=== PATIENT | female | born 1965 | race Caucasian/White ===

== ENCOUNTER → 2018-05-20 10:43 | Outpatient (CLI) | payer OTHER, SELFPAY ==
[2018-05-20 11:18] LABS: Add Manual Diff / Slide Review NO; Basophils Absolute Auto 0 /uL (0-100); Basophils Percent Auto 0.7 % (0-2); Eosinophils Absolute Auto 300 /uL (0-450); Hemoglobin 13.9 g/dL (12.0-16.0); Lymphocytes Absolute Auto 1600 /uL (1100-4500); Lymphocytes Percent Auto 24.8 % (25-40); Mean Corpuscular Hemoglobin 30.9 PG (26-34); Mean Corpuscular Volume 90.8 fL (80-100); Monocytes Absolute Auto 500 /uL (0-900); Monocytes Percent Auto 8.4 % (3-14); Neutrophils Absolute Auto 4000 /uL (1500-7000); Neutrophils Percent Auto 61.1 % (50-75); Platelet Count 212 X10^3/uL (150-400); Red Blood Cell Count 4.51 X10^6/uL (4.0-5.2); Red Cell Distribution Width 12.8 % (11.6-14.8); White Blood Cell Count 6.5 X10^3/uL (4.5-11.0)
== END ==
PROVIDERS: Family Provider Nurse Practitioner Family; PCP Nurse Practitioner Family; Visit Provider Specialist
DX: Z01.818 Encounter for other preprocedural examination (principal)
CPT/HCPCS: 36415; 85025

== ENCOUNTER 2018-05-28 06:38 | Day surgery (SDC) | payer OTHER, SELFPAY ==
[2018-05-27 07:29] VITALS: BMI 36.0
[2018-05-28] VITALS (14 sets, daily range): BP systolic 105–149; BP diastolic 56–76; PULSE 56–81; RESP 13–38; TEMP 36.3–36.8; O2SAT 97–100; BMI 36.0
--- NOTE | 2018-05-28 07:28 | PM.PREOP ---
Pre-operative Note Interval Note History & Physical reviewed/Exam performed by Physician: Yes Changes to H&P: No H&P completed within 30 days and has changed as indicated here:: see 05/20/18 out patient note
[2018-05-28] MEDS: CEFAZOLIN 2 GM/100 ML FROZ.PIGGY IV (07:55)
[2018-05-28] MEDS: LACTATED RINGERS 1,000 ML 100 ML IV ×2 (07:59→11:14)
--- NOTE | 2018-05-28 08:21 | SUR.OPER ---
Lithotomy on padded OR bed, head on pillow, arms secured on padded arm boards at <90 degrees abduction. Legs secured in padded yellow fins stirrups.
[2018-05-28] MEDS: ACETAMINOPHEN IV 1,000 MG/100 ML VIAL 400 MG IV (08:22)
[2018-05-28] MEDS: BUPIVACAINE 0.5% W/ EPI (PF) VIAL 30 ML INJ (08:33)
[2018-05-28] MEDS: SODIUM CHLORIDE 0.9% FLUSH 30 ML IV (08:34)
[2018-05-28] MEDS: HYDROMORPHONE 2 MG INJ 0.5 MG IV (09:42)
--- NOTE | 2018-05-28 09:43 | PM.OP.1 ---
Operative Date/Time/Diagnoses Date of procedure: 05/28/18 Time of procedure: 09:43 Pre-op diagnosis: Stress urinary incontinence with symptomatic cystocele and rectocele Post-op diagnosis: same Procedure & Clinicians Procedure: Anterior and posterior repair with sacrospinous ligament fixation and TVT exact suburethral sling Same procedure as scheduled: Yes Indications: Stress urinary incontinence and symptomatic cystocele and rectocele without uterine prolapse Surgeon: Lauren Kemp Click Yes if Unassisted: Yes Anesthesia Type: Spinal Operative Notes Findings: Hypermobile urethra with cystocele and rectocele, gaping introitus, no uterine prolapse Closure Type: primary Specimen(s): none sent Prosthetic devices, grafts, tissues, transplants, or devices: TVT exact suburethral sling Applied: catheter and other (Vaginal packing) Estimated Blood Loss (mL): 50 Procedure in detail: Patient was brought to the operating room where she was placed in yellowfin stirrups and prepped and draped in the usual sterile fashion. A check system was reviewed prior to the beginning of the case. Pulsatile stockings were in place and functional throughout the case. Warming was in place. 2 g of Ancef were in prior to beginning of the case. A Osorio catheter was placed. A dilute solution of 0.5% Marcaine with epinephrine was injected over this cystocele. An incision was made over the cystocele and the incision dissected laterally. A pursestring suture was used to decrease the caliber of the cystocele with 2-0 Vicryl suture. Plicating sutures were made over the cystocele. The incision was closed with 2-0 Vicryl suture.unless otherwise indicated. The area of the mid urethra was injected with half percent Marcaine with epinephrine. An incision was made over the mid urethra with a scalpel. The incision was extended laterally. The suprapubic exit sites were marked with a marking pen. The needles attached to the sling were placed from the bottom up and left in place. The catheter was removed and 300 mL of saline were placed in the bladder and cystoscopy was performed. A 70?? scope followed by a 12?? scope were used to look at the bladder and the urethra was no damage apparent with placement of the needles. Both ureters were seen to be functional. The graft was brought up loosely under the mid urethra. With sharp pressure against the bladder there was some leakage of urine. The plastic sheath was removed. The graft was cut under the skin of the suprapubic sites. The vaginal incision was closed with 2-0 Vicryl suture. Next a wedge shaped tissue was taken out of the posterior vaginal opening. The area over the rectocele was injected with a dilute solution of 0.5% Marcaine with epinephrine. An incision was made over the rectocele and enterocele with the scalpel. The dissection was undertaken laterally. Prolene suture with the Capio passer was placed through the uterosacral ligament on the right side and sutured to the underside of the cervix. 0 Vicryl suture was used to plicate over the rectocele. A finger was placed in the rectum to be sure there were no sutures placed through the rectal mucosa. The uterosacral sutures were tightened down and the vaginal incision was closed with 2-0 Vicryl suture. The perineal body was built up with interrupted 0 Vicryl sutures. The skin was closed with the 2-0 Vicryl suture. Vaginal packing was placed in the vagina and the Osorio left in place. Counts of instruments and sponges were correct. The patient went to recovery room in good condition. Complications: none Condition: stable Disposition: Acute Care Plan for aftercare: Vaginal packing and Osorio in until a.m. than bladder trial prior to discharge
--- NOTE | 2018-05-28 10:04 | SUR.PHASEI ---
Report called to KAMRYN Dominguez
--- NOTE | 2018-05-28 10:23 | SUR.PHASEI ---
Pt transferred to the floor. Report to KAMRYN Dominguez. IV saline locked. VS stable. Abd drsgs cdi x2, small amt of light pink drainage to roselia-pad. Osorio draining clear, light urine. Belongings bag and glasses with patient.
--- NOTE | 2018-05-28 11:52 | PC.ADMIT ---
[address] Admission Note: Patient to rm 229 from pacu at 1015. rates pain 3/10 which is tolerable, she states. Ice pack to pubic surgical incision sites. Sites CDI. Peripad w/ scant pink drainage. VSS. RA. SCD's on. IVF infusing per orders. S/P spinal anesthesia. Full sensation and mvmt. Spouse at bedside. No nausea. Offers no complaints. Drinking water and herbal tea. No nausea. The patient,Destin Zuniga,53 y/o, was given written information regarding hospital policies, unit procedures and contact persons. Patient's smoking status: Never smoker. Vital Signs - 8 hr 05/28/18 07:14 05/28/18 09:33 05/28/18 09:37 Temperature 97.8 F 97.4 F L Pulse Rate 56 L 81 69 Respiratory Rate 16 38 H 20 Blood Pressure 149/74 H 105/56 L 115/76 Pulse Oximetry 100 100 98 05/28/18 09:41 05/28/18 09:46 05/28/18 09:56 Temperature 97.5 F L Pulse Rate 65 64 61 Respiratory Rate 13 19 14 Blood Pressure 120/71 109/68 118/74 Pulse Oximetry 100 100 99 05/28/18 10:02 05/28/18 10:27 05/28/18 11:00 Temperature 97.5 F L 97.7 F Pulse Rate 66 67 61 Respiratory Rate 15 16 16 Blood Pressure 124/68 137/76 129/64 Pulse Oximetry 99 97 100 05/28/18 11:30 Temperature 97.4 F L Pulse Rate 65 Respiratory Rate 16 Blood Pressure 132/72 Pulse Oximetry 100
[2018-05-28] MEDS: HYDROCODONE/ACET 5/325 TABLET 2 TAB PO ×2 (13:41→18:46)
[2018-05-28] MEDS: DOCUSATE 250 MG CAPSULE PO (21:10)
[2018-05-28] MEDS: SODIUM CHLORIDE 0.9% FLUSH 10 ML IV (21:10)
--- NOTE | 2018-05-28 21:47 | PC.NURSE ---
1500- assumed care of pt from outgoing shift. Pt awake laying in bed. reports comfortable. quick dressing check of dressings. pt cooperative. 1700- pt did get up to BSC then to chair for dinner. felt a little nauseated. got back into bed. felt better. had some tea and apple sauce. denies nausea after that. MD in to see patient. pt fell asleep after that. ate about half of her dinner. uses call mccoy. bed alarm on. IV fluids almost done. will continue to monitor. given pain meds per MAY.
[2018-05-29 00:14] VITALS: BP 101/58; PULSE 81; RESP 18; TEMP 37.2; O2SAT 95
--- NOTE | 2018-05-29 01:05 | PM.PN.1 ---
Subjective Date Patient Seen: 05/29/18 Time Patient Seen: 01:05 Interval history: post op Anterior and posterior repair with sacrospinous ligament fixation. patient complains of some tailbone pain otherwise is doing well Exam Vital Signs (past 8 hours): - 05/28/18 20:13 05/29/18 00:14 Temperature 98.3 F 98.9 F Pulse Rate 74 81 Respiratory Rate 16 18 Blood Pressure 114/62 101/58 L Pulse Oximetry 100 95 Oxygen Delivery Method Room Air Oxygen Flow Rate 0 Narrative Exam Narrative: vaginal packing removed Assessment & Plan Assessment & Plan narrative: patient doing well postoperative. Vaginal packing removed. Osorio will be removed in the morning and postvoid residual check Quality VTE Deep Vein Thrombosis/Pulmonary Embolism Present on Admission: No
--- NOTE | 2018-05-29 03:00 | PC.NURSE ---
Indwelling catheter removed per pt. and with MD order.
[2018-05-29] MEDS: KETOROLAC 30 MG/ML VIAL IV ×2 (05:46→11:54)
[2018-05-29 05:50] VITALS: BP 119/66; PULSE 77; RESP 18; TEMP 36.9; O2SAT 100
--- NOTE | 2018-05-29 06:49 | PC.NURSE ---
This is the 3rd time pt. tried to urinate after capellan removal. After medicating her with Toradol, pt. finally able to void 250 ml in the urine hat and pt.states some in the toilet. Peripad is only showing scant to minimal bloody drainage. Pt. so far has been up and ambulating in the room and one time in the hallway independently without any problems.
[2018-05-29 07:25] LABS: Add Manual Diff / Slide Review NO; Basophils Absolute Auto 0 /uL (0-100); Basophils Percent Auto 0.3 % (0-2); Eosinophils Absolute Auto 100 /uL (0-450); Eosinophils Percent Auto 0.5 % (2-4); Hematocrit 36.4 % (36-46); Hemoglobin 12.5 g/dL (12.0-16.0); Lymphocytes Absolute Auto 1000 /uL (1100-4500); Lymphocytes Percent Auto 10.4 % (25-40); Mean Corpuscular HGB Conc 34.4 % (30-36); Mean Corpuscular Volume 90.3 fL (80-100); Monocytes Absolute Auto 500 /uL (0-900); Monocytes Percent Auto 5.5 % (3-14); Neutrophils Absolute Auto 8300 /uL (1500-7000); Neutrophils Percent Auto 83.3 % (50-75); Platelet Count 163 X10^3/uL (150-400); Red Blood Cell Count 4.03 X10^6/uL (4.0-5.2); White Blood Cell Count 9.9 X10^3/uL (4.5-11.0)
[2018-05-29 08:40] VITALS: BP 123/65; PULSE 73; RESP 15; TEMP 36.8; O2SAT 96
[2018-05-29] MEDS: DOCUSATE 250 MG CAPSULE PO (08:57)
--- NOTE | 2018-05-29 09:25 | PC.NURSE ---
Addendum entered by Angelica Bonilla R.N. 05/29/18 11:48: patient's pvr's improving. see documentation. dr. chambers notified of pvr 227 after recent 250cc void. she gave verbal order not to place capellan prior to dc as previously ordered. patient given hat to measure her voids at home. she understands that she is to see her doctor if unable to void, or present to the ER. Original Note: PATIENT CONTINUES WITH POST-VOID RESIDUALS. THIS AM BLADDER SCANNED AT APPROX 900, VOIDED APPROX 500. DR. CHAMBERS PRESENT DURING THIS TIME. NO IN AND OUT AT THIS TIME. SINCE SHE WAS ABLE TO VOID, MAKE SURE SHE IS STILL ABLE TO VOID IN THE NEXT FEW HRS. PATIENT HAS JUST VOIDED 200CC'S WITH 400CC'S PVR. ENCOURAGED PATIENT TO CONTINUE TO TRY VOIDING APPROX EVERY 1/2HR TO HOUR TO GIVE BLADDER A CHANCE TO EMPTY. RATES PAIN 3/10. STATES TORADOL WORKS BETTER THAN VICODIN. DENIES NEED FOR VICODIN AT THIS TIME. AMBULATING IN HALLS WITH HER SPOUSE.
--- NOTE | 2018-05-29 11:26 | P.DS_ITS ---
History of Present Illness Date Patient Seen: 05/29/18 Time Patient Seen: 11:22 Chief complaint: [id number] A&P REPAIR, SACROSPINIOUS LIG FIX *OPB Narrative: patient is postoperative anterior-posterior repair with suburethral sling and sacrospinous ligament fixation for urinary incontinence, cystocele and rectocele Discharge Providers Discharge Date: 05/29/18 Primary care physician: HERMES Frederick Discharge provider: Lauren Kemp MD Summary Discharge Diagnosis: stress urinary incontinence and symptomatic vaginal wall prolapse Hospital Course: patient underwent an anterior and posterior repair with suburethral sling and sacrospinous ligament fixation on 05/28/2018. After her vaginal packing and Osorio catheter were removed she continued to have a postvoid residual of 300 cc. She did well pain control. No nausea. Patient is ambulatory. Patient was given option of self catheterization or replacement of Osorio with rechecking postvoid residual and 2 days. Patient requested going home with a Osorio catheter. Status at Discharge Functional status at discharge: independent ambulation Overall status at discharge: patient is progressing back to baseline Exam Vital Signs (past 8 hours): - 05/29/18 05:50 05/29/18 08:40 Temperature 98.5 F 98.3 F Pulse Rate 77 73 Respiratory Rate 18 15 Blood Pressure 119/66 123/65 Pulse Oximetry 100 96 Oxygen Delivery Method Room Air Oxygen Flow Rate 0 Narrative Exam Narrative: Abdomen is soft nontender. Suprapubic dressings are dry. Mild vaginal bleeding. Extremities without edema and nontender. Objective Labs Result Diagrams: 05/29/18 07:10 Labs: Laboratory Results - last 24 hr 05/29/18 07:10 WBC 9.9 RBC 4.03 Hgb 12.5 Hct 36.4 MCV 90.3 MCH 31.0 MCHC 34.4 RDW 13.0 Plt Count 163 Neut % (Auto) 83.3 H Lymph % (Auto) 10.4 L [place] % (Auto) 5.5 Eos % (Auto) 0.5 L Baso % (Auto) 0.3 Neut # (Auto) 8300 H Lymph # (Auto) 1000 L [place] # (Auto) 500 Eos # (Auto) 100 Baso # (Auto) 0 Discharge Plan Discharge Plan Patient Disposition: Home Discharge Med Rec/Prescriptions Prescriptions: New hydrocodone-acetaminophen 5-325 mg Tablet 2 tab PO Q4HR PRN (Reason: Pain, Severe (7-10)) Qty: 30 RF: 0 Continued albuterol sulfate 90 mcg/actuation HFA aerosol inhaler 2 puff Inhalation PRN PRN (Reason: wheeze) RF: 0 Discontinued hydrocodone-acetaminophen 5-325 mg tablet 2 tab PO Q4-6H PRN (Reason: pain) Qty: 30 RF: 0 Follow up/Referrals: Lauren Kemp MD [Physician] - 05/31/18 (Bladder scan) Alaina Lee ARNP [Primary Care Provider] - Discharge Orders: Discharge (Order); Ordered 05/29/18 Ordered By: Lauren Kemp Provider Discharge Instructions Diet: Regular Activity: nothing in vagina, no lifting over 10 lb for 6 weeks Catheter: 2-way Osorio Catheter comment: remove catheter Thursday a.m. then come in for bladder scan Skin/Wound/Dressing Care Report to your healthcare provider any signs of infection, such as:: chills, fever, increased pain, unusual drainage and unusual redness Dressing: may remove dressings above pubic bone after 24 hrs do not need to keep it covered Visit Report/Discharge Packet Instructions: Cystocele/Rectocele, Urinary Incontinence Surgery -- Sling Procedures, How to Care for Your Osorio Catheter -- Female, DI for Urinary Catheter Removal Discharge Data Primary Care Provider: Alaina Lee Attending Provider: Lauren Kemp Quality VTE Deep Vein Thrombosis/Pulmonary Embolism Present on Admission: No
[2018-05-29 11:55] VITALS: BP 130/80; PULSE 84; RESP 18; TEMP 36.9; O2SAT 99
--- NOTE | 2018-05-29 13:27 | CM.DANOTE ---
Patient is a 53 year old female who was admitted on 05/29/18 for Repair/Sacrospinious Lig Fix. Pt has [facility] for insurance and her PCP is Dr. Lee. EMR was reviewed. Per MD, pt tolerated surgical procedure well and had vaginal packing removed and capellan cath d/c'd and has had some urinary retention but seems to be resolving. SW met bedside with pt and spouse and explained role and pt confirms that she lives at home with her in [place] and works and is Independent at baseline with ADL's. Pt denies any hx of HH or SNF and does not anticipate any needs at discharge and would be agreeable to d/c home today. Spouse bedside and very supportive and can provide transport home today. Plan: Patient to d/c home later today via spouse POV. No SW needs at this time. KUN Saeed Discharge Planning/Care Management CM Discharge Assessment Start: 05/29/18 13:25 Freq: Status: Active Protocol: Document 05/29/18 13:25 BF (Rec: 05/29/18 13:27 BF [id number]) Discharge Planning Assessment Assigned Qa Reviewer KUN Barrow DPOA/Assigned Designee Name spouseAndrew Contact Information [phone] Advance Directives? No History Provided By Patient Significant Other Medical Record Has Patient been admitted in last 30 No days? Prior Living Arrangements House Household Members spouse Type of transporation used prior to Drives own vehicle admit Independent with ADL's Yes Is patient alert and oriented? Yes Comment Home with spouse when stable Barriers to Discharge No Discharge Plan Home Transportation Arrangement Spouse bedside and to provide transport Referrals Initiated None needed Whiteboard Updated in Patient Room with Yes name and ext. # of Qa Reviewer Review Status In Process Please Provide Date Initial DC 05/29/18 Assessment Was Performed Next Review Type Continued Stay Review Pre-Anesthesia Assessment Start: 05/27/18 07:28 Freq: Status: Complete Protocol: Document 05/27/18 07:29 CAB (Rec: 05/27/18 07:34 CAB [id number]) Pre-Anesthesia Assessment Patient Information Reviewed Via Chart Review Primary Care Provider Alaina Lee Seen Specialist in Last 12 Months Yes Specialist Seen [employer] Primary Language [place] Island[place] Pie Maker Required No Height 157.48 cm Weight 89.358 kg Body Mass Index (BMI) 36.0 Hx Anesthesia Reactions Unknown Anesthesia Review Requested No Case Investigator No Smoking Status Never smoker History of Falling (Recent or History of No ) Patient is completely paralyzed or No completely immobile Mental Status Oriented to own ability Is patient on oxygen? No Currently Taking a Beta Helen No Anti-Coagulant Therapy No Has a Ladies Underwear Operator No Cardiac Testing No Hx Pacemaker/ICD No Pacemaker Rep Required? No Cardiac Clearance Received Not Applicable Bladder Pattern Incontinent, Stress Urinary Catheter Present No Hx Urinary Self Catheterization No Patient No Lactating No
== END 2018-05-29 12:38 | disposition home or self-care (01) ==
LOC: OR 06:39 → AC 06:41
PROVIDERS: Family Provider Nurse Practitioner Family; PCP Nurse Practitioner Family; Visit Provider Specialist
PROC: (CPT 57288; principal; 2018-05-28 07:45)
PROC: 0TSD0ZZ Reposition Urethra, Open Approach (ICD-10-PCS; CPT 57288; 2018-05-28 07:45)
DX: N81.10 Cystocele, unspecified (principal); N81.6 Rectocele; N39.3 Stress incontinence (female) (male); N36.41 Hypermobility of urethra; N81.5 Vaginal enterocele
CPT/HCPCS: 57288; 57260; 57282; 36415; 85025; C1771; J0131; J0690; J1170; J1885; J2250; J2704; J3010